=== PATIENT | female | born 1935 | race African-American/Black ===

== ENCOUNTER 2017-04-02 18:53 | Emergency (ER) | payer MEDICARE, OTHER ==
[~2017-04-02] VITALS: Ht 170.2 cm; Wt 98.6 kg
[~2017-04-02 18:53] MED LIST: AMLO-147 PO; CIPR500T4 PO; HYDR12.58 PO; OMEP20CA16 PO; SERT50TA6 PO; SIMV20TA2 PO; TRAM-40 PO
[2017-04-02 19:15] VITALS: Ht 170.2 cm; Wt 98.6 kg
--- NOTE | 2017-04-02 23:38 | RADRPT ---
PROCEDURE: XR left Shoulder. CLINICAL INDICATION: Pain TECHNIQUE: Three views of the left shoulder are available for review. COMPARISON: Chest x-ray 05/07/2015 FINDINGS: No acute fracture or dislocation is seen. There are mild hypertrophic change the glenohumeral joint and acromioclavicular joint.. . The visualized portions of the left clavicle and upper left rib ca ge are unremarkable. No radiopaque foreign body is identified. Bone mineralization is within elmer l limits. Soft tissues are unremarkable. IMPRESSION: 1. No acute fracture or dislocation is seen. 2. 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 RPTAT: HMVK .Trent Geronimo MD, Date Time Electronically viewed and signed by .Trent Geronimo MD, on 04/02/2017 23:38 .K/
--- NOTE | 2017-04-03 00:21 | ERD ---
ER Documentation Chief Complaint Chief Complaint left arm pain s/p trip and hit arm on wall. No KO. HPI This is an 81-year-old female with a past medical history of engine, hyperlipidemia, GERD, depression, arthritis who is presenting with left shoulder pain and mid left humeral paresthesias after a fall approximately a week ago. The patient reports tripping over a food cart about a week ago. She reports hitting her left shoulder and left upper arm against the corner. The patient also endorses minimal trauma to her head. The patient is not on any blood thinners currently. She did not lose consciousness. She has not had any concussion symptoms over the past week. She has had no headache or vision changes or confusion or inattention. The patient's primary concern is that she has a odd tingling sensation to her mid arm that is nonradiating but has persisted since her fall. She has limited range of motion to the left shoulder , but this is chronic for her related to her arthritis. The patient has good strength in both hands. She does not have any decreased sensation to her hands. The patient denies feeling sick recently. The patient denies fever or chills. The patient has had no headache or vision changes. The patient does not endorse neck or back pain. The patient denies lightheadedness or dizziness. The patient has had no chest pain or shortness of breath or trouble breathing. The patient denies nausea or vomiting. The patient denies abdominal pain or changes to bowel movements or urination. The patient has had no focal deficits. The patient has had no weakness or numbness or tingling to the face or extremities. ROS All systems reviewed and are negative except as per history of present illness. Medications Home Meds Active Scripts Ciprofloxacin Hcl* (Ciprofloxacin Hcl*) 500 Mg Tablet, 500 MG PO BID for 7 Days , TAB Prov:ZACH NATION DO 05/07/15 Reported Medications Tramadol Hcl* (Ultram*) 50 Mg Tablet, 50 MG PO Q6H Y for PAIN, TAB 05/07/15 Sertraline Hcl* (Sertraline Hcl*) 50 Mg Tablet, 50 MG PO DAILY, #30 TAB 05/07/15 Hydrochlorothiazide* (Hydrochlorothiazide*) 12.5 Mg Tablet, 12.5 MG PO DAILY, # 30 TAB 05/07/15 Simvastatin (Simvastatin) 20 Mg Tablet, 20 MG PO HS, TAB 04/30/14 Omeprazole* (Omeprazole*) 20 Mg Capsule.dr, 20 MG PO DAILY, CAP 04/30/14 Amlodipine Besylate* (Amlodipine Besylate*) 10 Mg Tablet, 10 MG PO DAILY, TAB 04/30/14 Allergies Allergies: Coded Allergies: No Known Drug Allergies (Verified Allergy, Mild, 04/02/17) PMhx/Soc History of Surgery: Yes (knee, R mastectomy, rotator cuff) Anesthesia Reaction: No Hx Respiratory Disorders: No Hx Cardiac Disorders: Yes (Hypertension, hyperlipidemia) Hx Psychiatric Problems: Yes (Depression) Hx Miscellaneous Medical Probl: Yes (Arthritis) Hx Alcohol Use: No Hx Substance Use: No Hx Tobacco Use: No Smoking Status: Never smoker FmHx Family History: No coronary disease, No diabetes Physical Exam Vitals Vital Signs Date Time Temp Pulse Resp B/P Pulse Ox O2 Delivery O2 Flow Rate FiO2 04/02/17 19:15 97.2 77 18 157/67 97 Physical Exam Const: No apparent distress, well-developed, well-nourished Head: Normocephalic, Atraumatic Eyes: Normal Conjunctiva. Extraocular movements intact. Pupils equal, round and reactive to light ENT: Normal External Ears, Nose and Mouth. Neck: Full range of motion. No meningismus. Resp: Clear to auscultation bilaterally, No wheezes, rales or rhonchi Cardio: Regular rate and rhythm. No murmurs, rubs or gallops Abd: Obese, soft, non tender, non distended. Normal bowel sounds Skin: No petechiae or rashes Back: No midline tenderness. No CVA tenderness Ext: No cyanosis, or edema. Limited range of motion to the left shoulder. Neur: Awake and alert, oriented 4. Cranial nerves intact. No facial droop. Normal strength, sensation and coordination. Psych: Normal Mood and Affect Procedures/MDM MDM The patient's presentation warrants further investigation. Patient is limited range of motion to the left shoulder. This is likely related to her arthritis, as it is mostly unchanged. However, the patient does endorse mild paresthesias , which could be related to shoulder trauma. The patient's paresthesias are nonradiating. I have decreased suspicion for a radiculopathy. The patient has no symptoms concerning for cerebral ischemia. I have low suspicion for an intracranial pathology. The patient's fall occurred over a week ago and she does not endorse any symptoms of a concussion. I have decreased suspicion for intracranial hemorrhage. IMAGING X-ray shoulder FINDINGS: No acute fracture or dislocation is seen. There are mild hypertrophic change the glenohumeral joint and acromioclavicular joint.. . The visualized portions of the left clavicle and upper left rib cage are unremarkable. No radiopaque foreign body is identified. Bone mineralization is within normal limits. Soft tissues are unremarkable. IMPRESSION: No acute fracture or dislocation is seen. 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 Electronically viewed and signed by .Trent Geronimo MD, MD on 04/02/2017 23:38 TREATMENT/DISPOSITION The patient's x-ray is reassuring as far as not having any fracture dislocation. The patient does have degenerative changes, which was expected. As indicated above, I believe that the paresthesias are related to the trauma but I do not see any evidence of radiculopathy. I have low suspicion for an intracranial pathology. The patient may follow-up as an outpatient. At this time, I feel that the patient stable for discharge. The patient will need follow-up with his primary care physician in 2-3 days. The patient will be given strict precautions with which to return to the emergency department. The patient's blood pressure was elevated at greater than 120/80 while in the emergency department. The patient was otherwise stable with no evidence of hypertensive urgency or emergency or end organ damage. The patient does not require admission for blood pressure control. I have discussed with the patient the risks of hypertension. I have advised the patient to follow up with the primary care physician for outpatient monitoring and treatment for hypertension in 2-3 days. I have instructed the patient to return to the ER for any new or worsening symptoms including chest pain, shortness of breath, headache, blurred vision, confusion, nausea, vomiting or LOC. Disclaimer: Inadvertent spelling and grammatical errors are likely due to EHR/ dictation software use and do not reflect on the overall quality of patient care. Note that the electronic time recorded on this note does not necessarily reflect the actual time of the patient encounter. Departure Diagnosis: Primary Impression: Paresthesia Additional Impressions: Fall with no significant injury Encounter type: initial encounter Qualified Code: W19.XXXA - Fall with no significant injury, initial encounter Left shoulder pain Chronicity: chronic Qualified Code: M25.512 - Chronic left shoulder pain Condition: CHICO Salcedo MD Apr 03, 2017 00:21
[2017-04-03 00:26] VITALS: BP 149/79; PULSE 71; RESP 18
[2017-04-03] MEDS ORDERED: TIZA4TAB PO (00:30)
[2017-04-03] MEDS ORDERED: CHOL100062 PO (00:30)
[2017-04-03] MEDS ORDERED: OSLT75C PO (00:30)
[2017-04-03] MEDS ORDERED: IRON18TA PO (00:30)
== END 2017-04-03 00:28 | disposition home or self-care (01) ==
LOC: E/R 18:53
DX: R20.2 Paresthesia of skin (principal); I10 Essential (primary) hypertension
CPT/HCPCS: 73030

== ENCOUNTER 2017-06-04 19:02 | Emergency (ER) | END 2017-06-05 04:13 | disposition home or self-care (01) ==